=== PATIENT | male | born 1945 | race Caucasian/White ===

== ENCOUNTER 2017-01-30 05:00 | Inpatient (IN) ==
[2017-01-23 15:09] LABS: Basophils # (Auto) 0 K/mcL (0.0-0.3); Basophils % (Auto) 0.2 % (0.0-2.0); Eosinophils # (Auto) 0.2 K/mcL (0.0-0.7); Eosinophils % (Auto) 2.1 % (0.0-7.0); Lymphocytes # (Auto) 1.5 K/mcL (1.5-4.8); Lymphocytes % (Auto) 17.9 % (15.5-49.0); Mean Cell Volume 91.4 fL (80.0-100.0); Mean Corpuscular HGB Conc 34.3 g/dL (31.0-36.0); Mean Corpuscular Hemoglobin 31.4 pg (26.0-34.0); Monocytes # (Auto) 0.5 K/mcL (0.1-0.9); Monocytes % (Auto) 5.8 % (1.0-12.0); Platelet Count 248 K/mcL (140-440); RBC 5.04 M/mcL (4.50-5.90); Red Cell Distribution Width 15.3 % (11.5-14.5)
[2017-01-23 15:10] LABS: Appearance,Urine CLEAR; Bilirubin,Urine NEG (NEG); Color,Urine YELLOW; Glucose,Urine (UA) NEGATIVE (NEG); Leukocyte Esterase,Urine NEG /uL (NEG); Nitrate,Urine NEG (NEG); Protein,Urine NEG (NEG); Specific Gravity,Urine 1.016 (1.000-1.035); Urine Blood NEG mg/dL (<0.03); Urobilinogen,Urine NEG (NEG)
[2017-01-23 15:27] LABS: Blood Urea Nitrogen 13 mg/dl (8-23)
[~2017-01-30 05:00] MED LIST: ACETAMINOPHEN 500 MG TABLET PO SCH; PREGABALIN 75 MG CAPSULE PO SCH; ceFAZolin 1 GM VIAL IV SCH; oxyCODONE 10 MG TAB.ER.12H PO SCH
[2017-01-30] MEDS ORDERED: GENTAMICIN SULFATE 800 MG/20 ML VIAL IR ONE (07:14)
[2017-01-30] MEDS ORDERED: SCOPOLAMINE 1 PATCH PATCH TOPICAL ONE (07:37)
[2017-01-30] MEDS ORDERED: PROPOFOL 200 MG/20 ML VIAL IV ONE (07:45)
[2017-01-30] MEDS ORDERED: PROMETHAZINE 12.5 MG SUPP.RECT PR ONE (07:45)
[2017-01-30] MEDS ORDERED: KETAMINE 100 MG/ML ML IV ONE (07:45)
[2017-01-30] MEDS ORDERED: DEXAMETHASONE 10 MG/ML VIAL IV ONE (07:45)
[2017-01-30] MEDS ORDERED: HYDROmorphone 2 MG/ML SYRINGE IV ONE (07:45)
[2017-01-30] MEDS ORDERED: TRANEXAMIC ACID 1,000 MG/10 ML VIAL IV ONE (07:45)
[2017-01-30] MEDS ORDERED: GLYCOPYRROLATE 0.2 MG/ML VIAL IV ONE (07:45)
[2017-01-30] MEDS ORDERED: PHENYLEPHRINE 10 MG/ML VIAL IV ONE (07:45)
[2017-01-30] MEDS ORDERED: MIDAZOLAM 2 MG/2 ML VIAL IV ONE (07:45)
[2017-01-30] MEDS ORDERED: SUCCINYLCHOLINE 20 MG/ML ML IV ONE (07:45)
[2017-01-30] MEDS ORDERED: ROPIVACAINE HCL/PF 20 ML VIAL IJ ONE (07:45)
[2017-01-30] MEDS ORDERED: LIDOCAINE HCL/PF 100 MG/5 ML SYRINGE IV ONE (07:45)
[2017-01-30] MEDS ORDERED: EPINEPHrine 1 MG/ML AMPUL IJ ONE (07:45)
[2017-01-30] MEDS ORDERED: ONDANSETRON 4 MG/2 ML VIAL IV ONE (07:45)
[2017-01-30] MEDS ORDERED: BENZOCAINE/MENTHOL 1 LOZENGE PO PRN ×2 (08:49→09:03)
[2017-01-30] MEDS ORDERED: METHOCARBAMOL 1,000 MG/10 ML VIAL IV PRN (08:49)
[2017-01-30] MEDS ORDERED: ONDANSETRON 4 MG/2 ML VIAL IV PRN ×2 (08:49→09:03)
[2017-01-30] MEDS ORDERED: ePHEDrine 50 MG/ML AMPUL IV PRN (08:49)
[2017-01-30] MEDS ORDERED: PROMETHAZINE 25 MG/ML VIAL IV PRN (08:49)
[2017-01-30] MEDS ORDERED: IPRATROPIUM/ALBUTEROL 3 ML AMPUL.NEB NEB PRN (08:49)
[2017-01-30] MEDS ORDERED: fentaNYL 100 MCG/2 ML VIAL IV PRN (08:49)
[2017-01-30] MEDS ORDERED: MEPERIDINE 25 MG/ML SYRINGE IV PRN (08:49)
[2017-01-30] MEDS ORDERED: LACTATED RINGERS 1,000 ML IV SCH (09:00)
[2017-01-30] MEDS ORDERED: KETOROLAC 15 MG/ML VIAL IV PRN (09:03)
[2017-01-30] MEDS ORDERED: MAGNESIUM HYDROXIDE 30 ML ORAL.SUSP PO PRN (09:03)
[2017-01-30] MEDS ORDERED: ACETAMINOPHEN 325 MG TABLET PO PRN (09:03)
[2017-01-30] MEDS ORDERED: POLYETHYLENE GLYCOL 3350 17 GM PACKET PO PRN (09:03)
[2017-01-30] MEDS ORDERED: HYDROcodone/APAP 10/325MG TABLET PO PRN (09:03)
[2017-01-30] MEDS ORDERED: TRANEXAMIC ACID 1,000 MG/10 ML VIAL IV SCH (09:03)
[2017-01-30] MEDS ORDERED: BISACODYL 10 MG SUPP.RECT PR PRN (09:03)
[2017-01-30] MEDS ORDERED: FLEETS ADULT ENEMA PR PRN (09:03)
--- NOTE | 2017-01-30 09:03 | Brief Operative Note ---
Date of procedure: 01/30/17 Pre-op diagnosis: left shoulder rca Post-op diagnosis: same Procedure: left reverse tsa bicep tenodesis Grafts/Implants: Yes Anesthesia: GETA Complications: none Complications Description: 01/30/17 09:00 none Surgeon: Paco Ivy Motor Builder Assembler: Tommie Boateng Estimated blood loss (cc): 40 Specimens Removed/Pathology: none sent Condition: stable Disposition: PACU
[2017-01-30] MEDS ORDERED: ACETAMINOPHEN 500 MG TABLET PO PRN (09:06)
--- NOTE | 2017-01-30 09:26 | Operative Note ---
DATE OF OPERATION: 01/30/2017 PREOPERATIVE DIAGNOSIS: Left shoulder rotator cuff arthropathy and biceps tendinitis. POSTOPERATIVE DIAGNOSIS: Left shoulder rotator cuff arthropathy and biceps tendinitis. PROCEDURE: Left reverse total shoulder and biceps tenodesis. SURGEON: Paco Ivy MD LAWYER REAL ESTATE: Tommie Boateng PA-C ANESTHESIA: General LMA anesthesia. COMPLICATIONS: None. ESTIMATED BLOOD LOSS: About 50 mL DESCRIPTION OF PROCEDURE: The patient was brought to the operating room and put to sleep with general LMA anesthesia. Once asleep, the patient had the left arm sterilely prepped and draped in a beach chair position. Once timeout had been performed, we confirmed the operative side, both by initials and x-rays and consent form. We then proceeded with sterilely prepping and draping the upper extremity, placed Ioban over the skin and made a deltopectoral approach, taking the deltoid laterally with the cephalic vein, conjoined tendon medially and released the subscap tendon. At this point, we harvested the bicep tendon which was attached back to the pectoralis major. We dissected down around the neck and dislocated the humeral head. The neck cut was made at the anatomical neck region with a surgical guide from [employer]. The ball was removed. We then subluxed the head posteriorly and performed a 360 degree capsulotomy and released. We released the remnants of the biceps tendon and labrum and then placed a pin centrally in the glenoid. Once this was done, we then reamed up to a size 40, taking care to avoid any neurovascular injuries, palpating the axillary nerve inferior to the capsule. The inner capsule was excised. I then placed a central pin and reamed up to a size 40, placed the metaglene. A central screw measured 44 mm and then the remaining screws were 28, 36 and 20. Once these were locked we placed a 40 mm glenosphere with 2 mm of eccentricity and 2 mm of offset. Once this was done, we then broached up on the humeral side, broaching up to a size 12 stem, trialing a size 4 to a size 6. Size 6 was the most appropriate for tension. The final implants were placed with +6 poly. This was reduced. We took the shoulder through the range of motion and did not repair the subscap because this would have been too tight. We irrigated thoroughly. We then closed the interval with 2-0 Vicryl and adhesive closure. A [employer]Joy sling was fitted and given to the patient. RBH:david Job ID: [id number] Doc ID: [id number] Paco Ivy MD
--- NOTE | 2017-01-30 09:47 | XRay Report ---
CLINICAL INFORMATION: Postsurgical follow-up TECHNIQUE: AP and Y view of the left shoulder COMPARISON: None. FINDINGS: Status post left reverse shoulder arthroplasty. Alignment is anatomic. IMPRESSION: Previous reverse shoulder arthroplasty as above Interpreted and Authenticated by: Asher Lovelace 01/30/17
[2017-01-30] MEDS: 0.45 % SODIUM CHLORIDE 1,000 ML IV SCH ×2 (11:10→21:38)
[2017-01-30] MEDS ORDERED: ACETAMINOPHEN 1,000 MG/100 ML BOTTLE IV SCH (12:00)
[2017-01-30] MEDS: HYDROmorphone 2 MG/ML SYRINGE IV PRN ×2 (13:39→21:34)
[2017-01-30] MEDS: 0.9 % SODIUM CHLORIDE 10 ML SYRINGE IV SCH ×2 (13:55→23:10)
[2017-01-30] MEDS: ceFAZolin 1 GM VIAL IV SCH ×2 (15:12→23:10)
[2017-01-30] MEDS: ASCORBIC ACID 500 MG TABLET PO SCH ×2 (15:13→23:01)
[2017-01-30] MEDS: OMEPRAZOLE 20 MG CAPSULE PO SCH (16:52)
[2017-01-30] MEDS: metFORMIN 500 MG TAB.XL.24H PO SCH (16:52)
[2017-01-30] MEDS ORDERED: FLUTICASONE PROPIONATE SPRAY.NAS NS PRN (21:00)
[2017-01-30] MEDS ORDERED: TEMAZEPAM 15 MG CAPSULE PO PRN (21:00)
[2017-01-30] MEDS ORDERED: SIMVASTATIN 40 MG TABLET PO SCH (21:00)
[2017-01-30] MEDS ORDERED: Melatonin [Melatonin] 10 MG PO SCH (21:00)
[2017-01-30] MEDS ORDERED: SENNOSIDES 1 TABLET PO SCH (21:00)
[2017-01-30] MEDS: FISH OIL 1,000 MG CAPSULE PO SCH (23:01)
[2017-01-30] MEDS: VITAMIN E (DL,TOCOPHERYL ACET) 400 UNIT CAPSULE PO SCH (23:01)
[2017-01-30] MEDS: DOXAZOSIN 4 MG TABLET PO SCH (23:01)
[2017-01-30] MEDS: DOCUSATE SODIUM 100 MG CAPSULE PO SCH (23:01)
[2017-01-31] MEDS: HYDROmorphone 2 MG TABLET PO PRN ×2 (03:20→06:53)
[2017-01-31] MEDS: HYDROmorphone 2 MG/ML SYRINGE IV PRN (05:25)
[2017-01-31] MEDS: 0.9 % SODIUM CHLORIDE 10 ML SYRINGE IV SCH (05:47)
[2017-01-31] MEDS: 0.45 % SODIUM CHLORIDE 1,000 ML IV SCH (06:34)
--- NOTE | 2017-01-31 07:29 | Orthopedic Progress Note ---
Subjective Patient information: Note initiated : 01/31/17 at 7:28 am Service Date, if different from initiated Date: [] Patient: Josse Oneil 71 y/o M admitted on 01/30/17 for LeftReverse Total Shoulder Arthroplasty with Bicep. Chief Complaint: [Pt is stable this morning on post operative day 1 without any significant concerns or complaints. Patients vital signs have remained stable. Patients dressing is dry and exhibits a grossly intact neurovascular and neuromotor exam. Patients 10 point ROS is otherwise negative. ] Objective Vital signs: Vital Signs Temp Pulse Resp BP Pulse Ox 01/31/17 03:21 98.7 F 95 H 20 143/83 93 01/30/17 23:36 97.8 F 91 H 20 116/60 92 01/30/17 20:00 98.4 F 95 H 20 126/69 97 01/30/17 15:29 98.9 F 95 H 18 137/80 96 01/30/17 13:25 98.9 F 20 122/81 95 01/30/17 12:25 127/78 95 01/30/17 11:55 120/74 94 01/30/17 11:25 129/70 93 01/30/17 11:10 125/73 92 01/30/17 10:55 135/72 93 01/30/17 10:45 93 01/30/17 10:40 97.2 F 14 135/72 98 01/30/17 10:24 97.0 F 97 H 14 159/67 96 01/30/17 10:15 96.8 F L 99 H 14 166/67 96 01/30/17 10:00 107 H 19 146/55 95 01/30/17 09:52 100 H 29 H 151/53 93 01/30/17 09:47 93 H 14 140/53 93 01/30/17 09:45 94 H 15 124/44 93 01/30/17 09:37 92 H 22 116/43 95 01/30/17 09:32 95 H 16 99/39 95 01/30/17 09:27 87 19 105/35 94 01/30/17 09:17 87 19 97/31 94 01/30/17 09:12 97.1 F 87 19 101/53 94 Intake and Output 01/30/17 01/31/17 01/31/17 21:59 05:59 13:59 Intake Total 1500 / 1500 0 / 0 Output Total 200 / 200 1100 / 1100 Balance 1300 / 1300 -1100 / -1100 Intake: IV 1000 / 1000 Sodium Chloride 0.45% 1,000 ml 1000 / 1000 @ 100 mls/hr IV .Q10H JAE Rx#: [id number] Oral 500 / 500 0 / 0 Output: Void Amount 200 / 200 1100 / 1100 Other: # Voids 2 Weight 285 lb Intake & Output: Intake & Output 01/30/17 01/31/17 01/31/17 21:59 05:59 13:59 Intake Total 1500 / 1500 0 / 0 Output Total 200 / 200 1100 / 1100 Balance 1300 / 1300 -1100 / -1100 Weight 285 lb Intake: IV 1000 / 1000 Sodium Chloride 0.45% 1,000 ml 1000 / 1000 @ 100 mls/hr IV .Q10H JAE Rx#: [id number] Oral 500 / 500 0 / 0 Output: Void Amount 200 / 200 1100 / 1100 Other: # Voids 2 Incision: Yes healing Dressing: Yes clean, Yes dry Weight bearing status: partial Neurological exam IM: Yes motor sensory intact, Yes neurovascular intact Extremities exam IM: Yes neurovascular intact - Labs CBC & BMP: 01/23/17 13:24 01/23/17 13:23 Labs: Orthopedic Labs 01/23/17 13:24 PT 12.5 INR 0.9 APTT 26 01/23/17 13:24 Hgb 15.8 Hct 46.1
[2017-01-31] MEDS ORDERED: THYROID, PORK 60 MG TABLET PO SCH (07:30)
--- NOTE | 2017-01-31 07:33 | Discharge Summary ---
Ortho Discharge - TSA - Patient Instructions Diet: Regular Diet Activity: activity as tolerated, weight bearing as tolerated Total Shoulder Protocol: Leave immobilizer in place except for bathing and ROM. Abduction pillow. Continue to wear sling until seen by physician. Codman Pendulum : These exercises use momentum produced by your body to move your shoulder joint. Bend your knees and shift your weight to your front leg, then back, allowing your arm to swing in the same directions. Using the same technique, alternately shift your weight between your right and left legs, allowing your arm to swing from side to side. These exercises are also performed in counterclockwise and clockwise circular motions. Typically these exercises are performed several times per day, for a set number repetitions or minutes, such as 20 times in a row or 5 minutes at a time. Dressing Care: May shower in 2 days Patient Education: Shoulder Arthroplasty (DC) - Follow Up Plan Follow Up Appointments: Tommie Boateng PA-C [Physician Electroencephalograph Technician] - 02/14/17 8:50 am Disposition: Home, Self-Care Prognosis: Good Rehab Potential: Good I certify that the patient requires SNF services: No Overall status at discharge: patient is progressing back to baseline - Orders For Discharge Prescriptions: Docusate Sodium [Colace] 100 mg PO BID #60 cap HYDROmorphone HCL [Dilaudid] 2 mg PO Q4-6HP PRN #75 tablet PRN Reason: Pain
[2017-01-31] MEDS: metFORMIN 500 MG TAB.XL.24H PO SCH (07:47)
[2017-01-31] MEDS: OMEPRAZOLE 20 MG CAPSULE PO SCH (07:47)
[2017-01-31] MEDS ORDERED: MULTIVIT,THER IRON,CA,FA & MIN 1 TABLET PO SCH (09:00)
[2017-01-31] MEDS ORDERED: VITAMIN D3 5,000 UNIT CAPSULE PO SCH (09:00)
[2017-01-31] MEDS ORDERED: TIOTROPIUM BROMIDE 18 MCG INHALANT INH SCH (09:00)
[2017-01-31] MEDS ORDERED: PRASTERONE 50 MG PO SCH (09:00)
[2017-01-31] MEDS ORDERED: TADALAFIL 5 MG PO SCH (09:00)
[2017-01-31] MEDS ORDERED: MAGNESIUM OXIDE 400 MG TABLET PO SCH (09:00)
[2017-01-31] MEDS: VITAMIN E (DL,TOCOPHERYL ACET) 400 UNIT CAPSULE PO SCH (09:26)
[2017-01-31] MEDS: FISH OIL 1,000 MG CAPSULE PO SCH (09:26)
[2017-01-31] MEDS: DOCUSATE SODIUM 100 MG CAPSULE PO SCH (09:26)
[2017-01-31] MEDS: ASCORBIC ACID 500 MG TABLET PO SCH (09:26)
[2017-01-31] MEDS: DOXAZOSIN 4 MG TABLET PO SCH (09:26)
[2017-02-02] MEDS ORDERED: TESTOSTERONE CYPIONATE 200 MG/ML IM ONE (14:00)
== END 2017-01-31 10:15 | disposition home or self-care (01) | DRG 483 ==
LOC: MEDSUR 05:00
PROVIDERS: ADMIT Orthopaedic Surgery; ATTEND Orthopaedic Surgery